=== PATIENT | male | born 1940 | race Caucasian/White ===

== ENCOUNTER 2018-04-01 06:39 | Observation (INO) | payer OTHER ==
[~2018-04-01] VITALS: Ht 170.2 cm; Wt 63.5 kg
--- NOTE | ~2018-04-01 | CATHLAB ---
[facility] [place], [place] [address] INVASIVE PROCEDURE REPORT Name: DAJUAN FARFAN Room #: 216-P [facility] IN [facility]#: [id number] Admission: 04/01/18 Attend Phys: Mohsen Mariee, Discharge: 04/02/18 Date of : 40 Date of Service: 04/08/18 1900 Report #: [id number] THIS REPORT FOR: //name// APPROVED REPORT Study performed: 04/01/2018 07:33:40 Patient Details Patient Status: Out-Patient Room #: The patient is a 77 year-old male Event Personnel Mohsen Mariee Inbound Call Center Agent, Cameron Washburn RN, Ziggy Meza RN RN, Miranda Hood RTR, ROBER Moore, Yara Sheffield Monitor, Becca Johnson Monitor Procedures Performed Art Access - R femoral artery* 10297 Initial Mod Sed Same Phys/QHP Gr5y 413839 05789 Mod Sed Same Phys/QHP Ea 762963 Left Heart Cath w/or w/o Coronaries 0966686 [facility] Aortogram Abdominal Peripheral Angio 816143 [address] Place w/wo Plasty Single LAD 453267 Hemostasis w/ Mynx Indication Chest pain Procedure Narrative The Right Groin^ was infiltrated with 1% Lidocaine subcutaneous anesthesia. A PINNACLE 6FR Sheath #[id number] sheath was inserted into the RFA 6F^. Coronary angiography was performed using coronary diagnostic catheters. The right coronary system was accessed and visualized with a JR4 catheter. The left coronary system was accessed and visualized with a JL4 catheter. The left ventricle was accessed and visualized with a PIGTAIL catheter. Left ventriculogram was performed in 30 degree projection. An aortogram of the abdominal aorta was performed. Closure device was deployed with a 6 Fr MYNXGRIP 6/7F #[id number]. The patient tolerated the procedure well and there were no complications associated with the procedure. There was no hematoma. Intraoperative Conscious Sedation Fentanyl 50 mcg Versed 1 mg Fluoro Time: 9.10 minutes Dose: DAP 7691.00 cGycm2 [address] [address] INVASIVE PROCEDURE REPORT Name: DAJUAN FARFAN Room #: 216-P [facility]#: [id number] Admission: 04/01/18 Attend Phys: Mohsen Mariee, Discharge: 04/02/18 Date of : 40 Date of Service: 04/08/18 1900 Report #: [id number] Contrast Type and Amount: Visipaque 200 ml Hemodynamics The aortic pressure is 142/49 mmHg with a mean of 68 mmHg. The left ventricular pressure is 149/12 mmHg with a mean of mmHg. The left ventricular end diastolic pressure is 20 mmHg. PCI Technique Lesion Percutaneous coronary intervention was performed on the mid left anterior descending artery segment. A LAUNCHER 6FR EBU 3.5 #790449 Guide Catheter was used to engage the ostium. A Luge Wire .014 x 182CM #[id number] Interventional Guidewire was used to cross the lesion. BALLOON DILATION A Balloon catheter Sprinter OTW 2.5 x 20 #[id number] was inserted and inflated up to 8.00atm for 21seconds. Additional Inflation: 10.00atm for 25seconds. Additional Inflation: 8.00atm for 27seconds. Additional Inflation: 12 giuseppe for 36 seconds STENT DEPLOYMENT A drug-eluting stent XIENCE SIL RX 2.75 X 38 #[id number] was inserted and inflated up to 10.00atm for 30seconds. Additional Inflation: 16.00atm for 32seconds. POST STENT DEPLOYMENT BALLOON DILATION A Balloon catheter TREK NC RX 3.0 X 15 #[id number] was inserted and inflated up to 20.00atm for 30seconds. Additional Inflation: 12.00atm for 17seconds. Additional Inflation: 10.00atm for 19seconds. Additional Inflation: 22 giuseppe for 25 seconds Conclusion #1 successful PTCA stent of a long high-grade mid LAD lesion placement of a 27 5 x 38 CXR drug-eluting stent. Postdilated noncompliant balloon to 3.2 mm yielding 0% residual JOSY grade 3 flow diffusely diseased distal vessel #2 left main mildly calcified with an distal lesion of 20% giving rise to LAD and circumflex #3 circumflex OM proximal is large giving rise to a large OM branch was has moderate disease of 70-80% tandem lesion to a longer area of 70% filling a large distal OM preserved use distal disease is noted is at least a dominant system #4 small nondominant right having minimal inferior wall filling no significant occlusive disease #5 normal left ventricular size with subtle anterior wall leg EF 50-55% [facility] [place] [place] [address] [place] [address] INVASIVE PROCEDURE REPORT Name: DAJUAN FARFAN Room #: 216-P [facility] IN M.R.#: [id number] Admission: 04/01/18 Attend Phys: Mohsen Mariee, Discharge: 04/02/18 Date of : 40 Date of Service: 04/08/181899 Report #: [id number] #6 abdominal aorta is mildly ectatic no definite aneurysm renal arteries mildly diseased Recommendations and plan continue dual antiplatelet therapy at least one year. Transfer to CCU in stable condition hemodynamically stable pain-free. Follow post coronary stent protocol. <ELECTRONICALLY SIGNED> By: Mohsen Mariee MD, FACC 04/08/181899 99 99 Mohsen Mariee MD, FACC /INF
--- NOTE | ~2018-04-01 | EKG ---
[place] [address] [address] [facility] [place] [address] ELECTROCARDIOGRAM REPORT Name: DAJUAN FARFAN Room #: 216-[facility].#: [id number] Admission: 04/01/18 Attend Phys: Mohsen Mariee MD, Discharge: Date of : 40 Report #: [id number] THIS REPORT FOR: //name// [facility] Test Date: 2018-04-02 Test Time: 06:00:24 Pat Name: DAJUAN FARFAN Department: Room: 216 Gender: M Statistics Teacher: LUCIANA : 1940 Requested By: Mohsen Mariee Order Number: [id number] MD: Kevin Boggs Measurements Intervals [place] Rate: 61 P: -15 CA: 176 QRS: 47 QRSD: 103 T: 40 QT: 410 QTc: 413 Interpretive Statements Sinus rhythm Early R-wave progression Baseline wander in lead(s) I,III,aVL,V2 No previous ECG available for comparison Electronically Signed On 04-02-2018 8:14:04 FIXED INCOME DIRECTOR by Kevin Boggs [email or web address] <ELECTRONICALLY SIGNED> By: Kevin Boggs MD, [facility] [address] 9 [phone] Kevin Boggs MD, [facility] /EPI
[2018-04-01 07:03] VITALS: BP 174/67
[2018-04-01] MEDS ORDERED: LIPITOR10 MG PO (07:08)
[2018-04-01] MEDS ORDERED: ASPIR 8181 MG PO (07:09)
[2018-04-01] MEDS ORDERED: LOPRESSOR50 PO (07:09)
[2018-04-01] MEDS ORDERED: LISINOPRIL20 MG PO (07:10)
[2018-04-01] MEDS ORDERED: MULTI VITAMIN1 EACH PO (07:10)
[2018-04-01] MEDS ORDERED: HYDROCHLOROTH12.5 M1 PO (07:11)
[2018-04-01 07:46] LABS: HEMATOCRIT 43.7 % (42.0-52.0); HEMOGLOBIN 15.3 gm/dL (14.0-18.0); MCH 30.5 pg (26.0-34.0); MCHC 35.1 g/dL (28.0-37.0); MCV 86.9 fL (80.0-100.0); RBC 5.03 mil/uL (4.50-6.00); RDW 13.9 % (10.5-14.5)
[2018-04-01 07:52] LABS: CALCIUM 9.5 mg/dL (8.5-10.1); CREATININE 1.2 mg/dL (0.7-1.3)
[2018-04-01] MEDS ORDERED: NITROGLYCERIN0.4 MG SUBLING (11:35)
[2018-04-01 20:45] VITALS: BP 129/50
[2018-04-02 00:25] VITALS: BP 144/53
[2018-04-02 04:28] VITALS: BP 140/58
[2018-04-02 04:34] LABS: HEMATOCRIT 42.2 % (42.0-52.0); HEMOGLOBIN 14.6 gm/dL (14.0-18.0); MCH 30.2 pg (26.0-34.0); MCHC 34.7 g/dL (28.0-37.0); MCV 87.1 fL (80.0-100.0); RBC 4.85 mil/uL (4.50-6.00); RDW 14.2 % (10.5-14.5); WBC 5.2 thou/uL (4.0-11.0)
[2018-04-02 04:45] LABS: ALBUMIN 3.2 g/dL (3.4-5.0); CALCIUM 8.5 mg/dL (8.5-10.1); CREATININE 1.1 mg/dL (0.7-1.3); POTASSIUM 3.8 mmol/L (3.5-5.1); TOTAL BILIRUBIN 0.6 mg/dL (<0.1-1.0); TOTAL PROTEIN 6.6 g/dL (6.4-8.2); TROPONIN-I 0.1 ng/mL (<0.06)
[2018-04-02] MEDS ORDERED: CLOPIDOGREL75 MG PO (07:05)
[2018-04-02] MEDS ORDERED: ASPIRIN325 PO (07:06)
[2018-04-02 07:55] VITALS: BP 147/60
[2018-04-02 10:09] VITALS: BP 147/60
[2018-04-02 10:13] VITALS: BP 147/60
== END 2018-04-02 10:27 | disposition home or self-care (01) ==
LOC: CATH 06:39 → 2N 10:02 → CATH 10:39 → ENTRNSPT 04-02 10:12 → EDTRNSPTSTS 04-02 10:15 → 2N 04-02 10:27
PROVIDERS: Internal Medicine Cardiovascular Disease
DX: I25.119 Atherosclerotic heart disease of native coronary artery with unspecified angina pectoris (principal); I10 Essential (primary) hypertension; E78.5 Hyperlipidemia, unspecified; R94.39 Abnormal result of other cardiovascular function study; R06.00 Dyspnea, unspecified; R93.1 Abnormal findings on diagnostic imaging of heart and coronary circulation; I65.29 Occlusion and stenosis of unspecified carotid artery; Z87.891 Personal history of nicotine dependence; Z72.89 Other problems related to lifestyle; Z95.5 Presence of coronary angioplasty implant and graft; Z98.890 Other specified postprocedural states; Z79.82 Long term (current) use of aspirin; Z79.899 Other long term (current) drug therapy

== ENCOUNTER 2018-10-21 06:38 | Observation (INO) | payer OTHER ==
[~2018-10-21] VITALS: Ht 170.2 cm; Wt 63.6 kg
[2018-10-21] VITALS (10 sets, daily range): BP systolic 121–139; BP diastolic 52–67
[~2018-10-21 06:38] MED LIST: ASPIR 8181 MG PO; ASPIRIN325 PO; CLOPIDOGREL75 MG PO; HYDROCHLOROTH12.5 M1 PO; LIPITOR10 MG PO; LISINOPRIL20 MG PO; LOPRESSOR50 PO; MULTI VITAMIN1 EACH PO; NITROGLYCERIN0.4 MG SUBLING
[2018-10-21 07:46] LABS: HEMATOCRIT 36.9 % (42.0-52.0); HEMOGLOBIN 12.2 gm/dL (14.0-18.0); MCH 26.5 pg (26.0-34.0); MCHC 33.1 g/dL (28.0-37.0); MCV 80.1 fL (80.0-100.0); RBC 4.61 mil/uL (4.50-6.00); RDW 15.1 % (10.5-14.5); WBC 3.4 thou/uL (4.0-11.0)
[2018-10-21 07:53] LABS: CALCIUM 9.1 mg/dL (8.5-10.1); CREATININE 1.3 mg/dL (0.7-1.3); POTASSIUM 4.5 mmol/L (3.5-5.1)
[2018-10-21] MEDS ORDERED: PACERONE 200 M200 M1 PO (08:17)
[2018-10-21] MEDS ORDERED: FLOMAX0.4 MG PO (08:18)
--- NOTE | 2018-10-21 16:13 | NUR ---
PT ADMITED FROM PHARMACEUTICAL PLANT OPERATOR. ALERT AND ORIENTED. ADMISSION HX AND ASSESSMENT COMPLETED. VSS. DENIED HAVING PAIN OR DISCOMFORT. NO HEMATOMA NOTED ON THE RIGHT GROIN INCISION. ORDERS NOTED. ORIENTED TO THE ROOM AND THE CALL SYSTEM. WILL CONTINUE TO MONITOR.
[2018-10-22 04:57] LABS: HEMATOCRIT 35.3 % (42.0-52.0); HEMOGLOBIN 11.7 gm/dL (14.0-18.0); MCH 26.4 pg (26.0-34.0); MCHC 33.2 g/dL (28.0-37.0); MCV 79.7 fL (80.0-100.0); RBC 4.43 mil/uL (4.50-6.00); RDW 14.9 % (10.5-14.5); WBC 3.9 thou/uL (4.0-11.0)
[2018-10-22 05:11] LABS: CALCIUM 8.5 mg/dL (8.5-10.1); CREATININE 1.1 mg/dL (0.7-1.3); TROPONIN-I 0.2 ng/mL (<0.06)
--- NOTE | 2018-10-22 05:19 | NUR ---
ASSUMED PT CARE AT 1900 WITH NO SIGN OF DISTRESS NOTED. PT IS ALERT AND ORIENTED. PT IS STABLE FROM CARDIAC CATH BUBBA STENT PLACEMENT. GROIN SITE IS IN INTACT CLEAN AND DRY. NO HEMATOMA OR BRUISING. SCHEDULED MEDS ADMINISTERED TO PATIENT NEEDED. PT IS STABLE DENIES ANY FURTHER NEEDS AT THIS TIME.
[2018-10-22 05:38] VITALS: BP 132/58
[2018-10-22] MEDS ORDERED: LIPITOR10 MG PO (07:35)
[2018-10-22 07:46] VITALS: BP 128/61
[2018-10-22 08:00] VITALS: BP 128/61
--- NOTE | 2018-10-22 09:21 | EKG ---
[address] [place] [address] ELECTROCARDIOGRAM REPORT Name: DAJUAN FARFAN Room #: 205-[facility].R.#: [id number] ������������������ Admission: 10/21/18 ������������������ Attend Phys: Mohsen Mariee MD, Discharge: ������������������ Date of : 40 Report #: [id number] ����������������������������������������������������������������� [id number] THIS REPORT FOR: //name// [facility] Test Date: 2018-10-21 Test Time: 07:57:25 Pat Name: DAJUAN FARFAN Department: Room: [facility] Gender: M Splitter Machine: Aneesh TONY : 1940 Requested By: Mohsen Mariee Order Number: [id number] MD: Kevin Boggs Measurements Intervals [place] Rate: 56 P: 54 NV: 190 QRS: 28 QRSD: 150 T: -11 QT: 514 QTc: 497 Interpretive Statements Sinus rhythm Right bundle branch block Compared to ECG 04/02/2018 06:00:24 Right bundle-branch block now present Electronically Signed On 10-22-2018 9:21:28 CDT by Kevin Boggs [email or web address] ��������������������������������������������� <ELECTRONICALLY SIGNED> ���������������������������������������� By: Kevin Boggs MD, [facility] ��������������������������������������������� 10/22/18 0921 [id number] [id number] Kevin Boggs MD, [facility] /EPI
--- NOTE | 2018-10-22 09:35 | EKG ---
[address] [address] ELECTROCARDIOGRAM REPORT Name: DAJUAN FARFAN Room #: 205-P [facility] M.R.#: [id number] ������������������ Admission: 10/21/18 ������������������ Attend Phys: Mohsen Mariee MD, Discharge: ������������������ Date of : 40 Report #: [id number] ����������������������������������������������������������������� [id number] THIS REPORT FOR: //name// [facility] Test Date: 2018-10-22 Test Time: 07:14:37 Pat Name: DAJUAN FARFAN Department: Room: 205 P Gender: M Carpenter Helper: OTTO : 1940 Requested By: Elizabeth Garvin Order Number: [id number] MD: Kevin Boggs Measurements Intervals [place] Rate: 64 P: 47 SC: 186 QRS: 38 QRSD: 148 T: 1 QT: 480 QTc: 496 Interpretive Statements Sinus rhythm Right bundle branch block Compared to ECG 04/02/2018 06:00:24 Right bundle-branch block now present Electronically Signed On 10-22-2018 9:34:57 CDT by Kevin Boggs [email or web address] ��������������������������������������������� <ELECTRONICALLY SIGNED> ���������������������������������������� By: Kevin Boggs MD, [facility] ��������������������������������������������� 10/22/18 0934 0714 3 Kevin Boggs MD, [facility] /EPI
[2018-10-22 09:44] VITALS: BP 128/61
--- NOTE | 2018-10-22 10:24 | NUR ---
ASSUMED CARE OF PT AT 0700. PT A&OX4, UP AD MARY WITH STEADY GAIT. ROOM FREE OF TRIP HAZARDS. PT'S VITAL SIGNS WITHIN NORMAL LIMITS AND PT WAS SINUS RHYTHM/SINUS ARYTHMIA WITH BBB ON TELEMETRY. PT SEEN BY DARCI AND DR. MESA AND DISCHARGE ORDERS RECEIVED. PT'S RIGHT GROIN SITE C/D/I WITH NO HEMATOMA OR PAIN. PT AND DAUGHTERS COMMUNICATED UNDERSTANDING OF DISCHARGE ORDERS, MEDS AND FOLLOW UP APPTS. PT SENT HOME WITH BETA DANISH, ASPIRIN, AND PLAVIX MEDICATION ORDERS. PT STATED HE HAD ALL BELONGINGS EXCEPT HIS COMB. PT HAD DAUGHTERS TO DRIVE HIM HOME. PRINTED POST ANGIOGRAM CARE INSTRUCTIONS GIVEN TO PT. ONE IV AND TELE BOX REMOVED.
--- NOTE | 2018-10-22 16:52 | CATHLAB ---
[facility] [place] [address] INVASIVE PROCEDURE REPORT Name: DAJUAN FARFAN Room #: 205-P [facility] IN ..#: [id number] ������������� Admission: 10/21/18 ������������� Attend Phys: Mohsen Mariee, Discharge: ��� 10/22/18 ������������� ��� Date of : 40 Date of Service: 10/22/18 1652 �� Report #: [id number] �������� ��������������������������������������������[id number] THIS REPORT FOR: //name// APPROVED REPORT Study performed: 10/21/2018 08:29:07 Patient Details The patient is a 78 year-old male Event Personnel Mohsen Mariee Professor Of Journalism, Jaja Ross RN RN, Bere Brizuela RN, Deja Dunbar, Gill Hammond Monitor Procedures Performed Left Heart Cath w/or w/o Coronaries [id number] [facility] [address] Place w/wo Plasty Single OM 009312 Indication Chest pain Procedure Narrative The Right Groin^ was infiltrated with 1% Lidocaine subcutaneous anesthesia. A PINNACLE 6FR Sheath #[id number] sheath was inserted into the RFA^. Coronary angiography was performed using coronary diagnostic catheters. The right coronary system was accessed and visualized with a JR4 catheter. The left coronary system was accessed and visualized with a JL4 catheter. The left ventricle was accessed and visualized with a PIGTAIL catheter. Closure device was deployed with a Fr MYNXGRIP 6/7F #[id number]. The patient tolerated the procedure well and there were no complications associated with the procedure. There was no hematoma. Intraoperative Conscious Sedation Sedation start time: 919 Case end Time: 1000 Fentanyl 75 mcg Versed 1.5 mg Fluoro Time: 6.56 minutes Dose: DAP 7343.00 cGycm2 995 mGy Contrast Type and Amount: Visipaque 135 ml Hemodynamics The aortic pressure is 133/42 mmHg with a mean of 74 mmHg. The left [facility] [place] [place] [address] INVASIVE PROCEDURE REPORT Name: DAJUAN FARFAN AMBER Room #: 205-P [facility] IN M.R.#: [id number] ������������� Admission: 10/21/18 ������������� Attend Phys: Mohsen Mariee, Discharge: ��� 10/22/18 ������������� ��� Date of : 40 Date of Service: 10/22/18 1652 �� Report #: [id number] �������� ��������������������������������������������[id number] ventricular pressure is 155/11 mmHg with a mean of mmHg. The left ventricular end diastolic pressure is 26 mmHg. PCI Technique Lesion Percutaneous coronary intervention was performed on the first obtuse marginal branch segment. A LAUNCHER 6FR EBU 3.5 #541323 Guide Catheter was used to engage the ostium. A Luge Wire .014 x 182CM #[id number] Interventional Guidewire was used to cross the lesion. BALLOON DILATION A Balloon catheter Sprinter OTW 2.5 x 12 #[id number] was inserted and inflated up to 6.00atm for 8seconds. Additional Inflation: 6.00atm for 28seconds. Additional Inflation: 6.00atm for 19seconds. STENT DEPLOYMENT A stent XIENCE SIL RX 2.5 X 12 #[id number] was inserted and inflated up to 14.00atm for 40seconds. Conclusion #1 successful PTCA stent of the mid large circumflex OM branch 95% to 0% with a 2.5 x 12 CR drug-eluting stent postdilated 2.7 mm JOSY grade 3 flow #2 left main large free of disease giving rise to LAD and circumflex #3 LAD with 30-40% proximal lesion off the left main a proximal mid vessel stent with mild in-stent restenosis and moderate mid and distal disease extends around the apex. The vessel becomes somewhat attenuated diffusely diseased and these last half #4 essentially a nondominant right coronary artery has a long area of this 80% stenosis giving rise to a small posterior lateral branch which has no significant left ventricular filling #5 A smaller codominant branch extends to portion of the inferior wall and a codominant system #6 normal left ventricular size and systolic function EF 60% Indications and plan: Continue aggressive risk factor modification. Dual antiplatelet therapy to continue indefinitely. Transfer to CCU in stable condition. ��������������������������������������������� <ELECTRONICALLY SIGNED> ���������������������������������������� By: Mohsen Mariee MD, [facility] ��������������������������������������������� 10/22/181651 51 51 Mohsen Mariee MD, FACC /INF
== END 2018-10-22 10:03 | disposition home or self-care (01) ==
LOC: CATH 06:38 → 2N 11:58 → CATH 13:49 → 2N 10-22 10:03
PROVIDERS: Nurse Practitioner Gerontology; ADMIT Internal Medicine Cardiovascular Disease
DX: I25.10 Atherosclerotic heart disease of native coronary artery without angina pectoris (principal); I10 Essential (primary) hypertension; E78.5 Hyperlipidemia, unspecified; I48.0 Paroxysmal atrial fibrillation; I45.10 Unspecified right bundle-branch block; Z79.899 Other long term (current) drug therapy

== ENCOUNTER → 2020-02-17 | Outpatient (CLI) | payer OTHER ==
[~2020-02-17] MED LIST changes: +FLOMAX0.4 MG PO; +PACERONE 200 M200 M1 PO
== END ==
LOC: SJCVCIMAG 12-30 08:12
PROVIDERS: ATTEND Internal Medicine Cardiovascular Disease
DX: I25.10 Atherosclerotic heart disease of native coronary artery without angina pectoris (principal); I48.0 Paroxysmal atrial fibrillation; I10 Essential (primary) hypertension; E78.5 Hyperlipidemia, unspecified; Z98.61 Coronary angioplasty status

== ENCOUNTER → 2020-10-18 | Outpatient (CLI) | payer OTHER | LOC: SJCVC 09:56 | PROVIDERS: ATTEND Internal Medicine Cardiovascular Disease | DX: R94.31 Abnormal electrocardiogram [ECG] [EKG] (principal); I45.10 Unspecified right bundle-branch block; I25.10 Atherosclerotic heart disease of native coronary artery without angina pectoris; I48.0 Paroxysmal atrial fibrillation; E78.00 Pure hypercholesterolemia, unspecified; E78.5 Hyperlipidemia, unspecified; I10 Essential (primary) hypertension; Z88.2 Allergy status to sulfonamides; Z88.1 Allergy status to other antibiotic agents; Z79.899 Other long term (current) drug therapy; Z87.891 Personal history of nicotine dependence ==

== ENCOUNTER → 2021-04-12 | Outpatient (CLI) | payer OTHER | LOC: SJCVCIMAG 08:09 | PROVIDERS: ATTEND Internal Medicine Cardiovascular Disease | DX: I25.10 Atherosclerotic heart disease of native coronary artery without angina pectoris (principal); Z95.5 Presence of coronary angioplasty implant and graft ==